=== PATIENT | female | born 1990 | race Caucasian/White ===

== ENCOUNTER → 2017-02-21 | Outpatient (CLI) | payer MEDICAID ==
[~2017-02-21] MED LIST: ABILIFY20 MG PO; AMOXICILLIN 25250 MG PO; BENADRYL; BIRTH CONTROL PILLS; CEPHALEXIN500 M1 PO; CLARITIN 1010 MG/TAB PO; EES400 MG PO; FAMVIR 500500 MG/TAB PO; GEODON80 MG PO; LEXAPRO 10MG10 MG PO; LEXAPRO20 MG PO; MACROBID 1100 MG/CAP PO; MICROGESTIN 1/21 TAB PO; MIRENA52 MG IY; NASONEX SPRAY; NORCO 325 MG-51 TAB PO; NORCO 325 MG-7.1 TAB PO; PAXIL20 MG PO; PERCOCET 325 MG1 TA2 PO; PHENERGAN 25 TA25 MG PO; PREDNISONE20 MG PO; PRENATAL1 TA1 PO; PRENATAL1 TA5 PO; PREVACID30 MG PO; PROMETHAZINE12.5 M5 PO; PROVENTIL0.09 MG/A1 IH; TESSALON PERLE200 MG PO; TOPAMAX 100MG100 MG PO; TOPIRAMATE; ZITHROMAX Z PA250 MG PO; ZOFRAN 4MG T4 MG/TAB PO; ZOFRAN ODT4 MG PO; ZOLOFT 100MG100 MG PO; ZYRTEC 10MG10 MG PO
== END ==
LOC: COL.RAD 15:51
DX: R10.11 Right upper quadrant pain (principal); R10.12 Left upper quadrant pain; Z87.442 Personal history of urinary calculi

== ENCOUNTER 2017-10-19 19:52 | Emergency (ER) | payer MEDICAID ==
[~2017-10-19] VITALS: Ht 157.5 cm; Wt 84.1 kg
[2017-10-19 19:53] VITALS: TEMP 98.5
[2017-10-19 20:11] VITALS: BP 119/68
[2017-10-19 20:33] LABS: BASO # 0.1 (0.0-0.2); BASO % 0.6 % (0.0-2.0); EOS # 0.1 (0.0-0.7); EOS % 0.9 % (0-4.0); GRAN # 7.5 (1.4-6.5); GRAN % 69.9 % (42.2-75.2); HEMATOCRIT 39.5 % (37.0-47.0); HEMOGLOBIN 13.2 g/dl (12.5-16.0); LYMPH # 2.5 (1.2-3.4); LYMPH % 23.3 % (20.0-51.0); MEAN CELL VOLUME 81 fl (80.0-100.0); MEAN CORPUSCULAR HEMOGLOBIN 27 pg (27.0-31.0); MEAN CORPUSCULAR HGB CONC 33 g/dl (33.0-37.0); MEAN PLATELET VOLUME 9.5 fl (7.4-10.4); MONO # 0.5 (0.1-0.6); PLATELET COUNT 284 K/mm3 (130-400); RED BLOOD COUNT 4.85 M/mm3 (4.10-5.30); REDCELL DISTRIBUTION WIDTH-CV 13.1 % (11.5-14.5)
[2017-10-19 20:41] LABS: BILIRUBIN,TOTAL 0.6 mg/dL (0.0-1.0); CALCIUM 9.2 mg/dL (8.4-10.2); CREATININE, serum 0.81 mg/dL (0.52-1.25); POTASSIUM 3.6 mmol/L (3.4-5.0); TOTAL PROTEIN 7.6 gm/dL (6.4-8.2)
[2017-10-19 22:06] VITALS: PULSE 80
== END 2017-10-19 22:06 | disposition home or self-care (01) ==
LOC: COL.ER 19:52
PROVIDERS: Emergency Medicine
DX: K52.9 Noninfective gastroenteritis and colitis, unspecified (principal); Z90.49 Acquired absence of other specified parts of digestive tract
CPT/HCPCS: J2405; J3010; J7120

== ENCOUNTER 2017-12-11 19:36 | Emergency (ER) | payer MEDICAID ==
[~2017-12-11] VITALS: Ht 157.5 cm; Wt 81.8 kg
[2017-12-11 19:39] VITALS: TEMP 99.2
[2017-12-11 20:27] LABS: BASO # 0.1 (0.0-0.2); BASO % 0.5 % (0.0-2.0); EOS # 0.1 (0.0-0.7); EOS % 0.6 % (0-4.0); GRAN # 7.5 (1.4-6.5); GRAN % 70.5 % (42.2-75.2); HEMOGLOBIN 11.9 g/dl (12.5-16.0); LYMPH # 2.4 (1.2-3.4); LYMPH % 22.5 % (20.0-51.0); MEAN CELL VOLUME 82 fl (80.0-100.0); MEAN CORPUSCULAR HEMOGLOBIN 27 pg (27.0-31.0); MEAN CORPUSCULAR HGB CONC 33 g/dl (33.0-37.0); MEAN PLATELET VOLUME 9.6 fl (7.4-10.4); MONO # 0.6 (0.1-0.6); MONO % 5.6 % (1.7-9.3); PLATELET COUNT 252 K/mm3 (130-400); RED BLOOD COUNT 4.36 M/mm3 (4.10-5.30); REDCELL DISTRIBUTION WIDTH-CV 13.2 % (11.5-14.5)
[2017-12-11 20:28] LABS: HEMATOCRIT 35.6 % (37.0-47.0)
[2017-12-11 20:38] LABS: ALBUMIN 4.1 gm/dL (3.5-5.0); BILIRUBIN,TOTAL 0.5 mg/dL (0.0-1.0); CALCIUM 9.1 mg/dL (8.4-10.2); CREATININE, serum 0.63 mg/dL (0.52-1.25); POTASSIUM 3.5 mmol/L (3.4-5.0); TOTAL PROTEIN 7.3 gm/dL (6.4-8.2)
[2017-12-11 21:14] LABS: COLLECTION METHOD CLEAN CATCH
[2017-12-11 21:37] LABS: MUCOUS Present /lpf; PH 5 (5-8); URINE APPEARANCE Hazy; URINE BACTERIA Rare /hpf; URINE BILIRUBIN Negative (NEGATIVE); URINE BLOOD Negative (NEGATIVE); URINE COLOR Yellow; URINE GLUCOSE Negative (NEGATIVE); URINE KETONE Negative (NEGATIVE); URINE LEUKOCYTE ESTERASE 2+ (NEGATIVE); URINE NITRATE Negative (NEGATIVE); URINE PROTEIN(semi-quant) 1+ (NEGATIVE); URINE UROBILINOGEN Negative (NEGATIVE)
[2017-12-11] MEDS ORDERED: CEFTIN 250250 MG/TAB PO (22:10)
[2017-12-11 22:33] VITALS: BP 105/63; PULSE 77
== END 2017-12-11 22:33 | disposition home or self-care (01) ==
LOC: COL.ER 19:36
PROVIDERS: Nurse Practitioner
DX: O23.41 Unspecified infection of urinary tract in pregnancy, first trimester (principal); O99.511 Diseases of the respiratory system complicating pregnancy, first trimester; J45.909 Unspecified asthma, uncomplicated; O99.341 Other mental disorders complicating pregnancy, first trimester; F32.9 Major depressive disorder, single episode, unspecified; Z87.440 Personal history of urinary (tract) infections; Z87.442 Personal history of urinary calculi; Z3A.01 Less than 8 weeks gestation of pregnancy
CPT/HCPCS: J0696; J2270; J7030

== ENCOUNTER 2018-08-03 21:13 | Inpatient (IN) | payer BC, MEDICAID ==
[~2018-08-03] VITALS: Ht 154.9 cm; Wt 86.8 kg
[2018-08-03] VITALS (9 sets, daily range): BP systolic 100–130; BP diastolic 50–81; PULSE 64–180; TEMP 98
[~2018-08-03 21:13] MED LIST changes: +CEFTIN 250250 MG/TAB PO
--- NOTE | 2018-08-03 21:30 | NUR ---
2114- Patient ambulatory to LDR-5 with , Magdy. Patient into restroom to change into gown. 2129- EFM and TOCO on and tracing. Patient presents to L&D with complaints of contractions since OB appointment today at [facility]. Patient states contractions have been increasing in strength since 1800 and are 3-5 minutes apart with resting periods of 15-20 minutes. Patient states she has intense lower back pain during contractions. Patient denies LOF or bleeding, but has had minimal spotting since yesterday and states she is starting to lose her mucus plug. SVE /-1 by this RN. Assessment completed. 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
[2018-08-03] MEDS ORDERED: NATURAL IRON65 MG (21:31)
[2018-08-03] MEDS ORDERED: ZANTAC 150MG T150 MG PO (21:31)
[2018-08-03] MEDS ORDERED: PRENATAL MVI (21:31)
[2018-08-03 23:00] LABS: BASO % 0.3 % (0.0-2.0); EOS % 0.3 % (0-4.0); GRAN # 8.1 (1.4-6.5); HEMOGLOBIN 11.8 g/dl (12.5-16.0); LYMPH # 2.7 (1.2-3.4); LYMPH % 23.1 % (20.0-51.0); MEAN CELL VOLUME 84 fl (80.0-100.0); MEAN CORPUSCULAR HEMOGLOBIN 29 pg (27.0-31.0); MEAN CORPUSCULAR HGB CONC 35 g/dl (33.0-37.0); MEAN PLATELET VOLUME 10.2 fl (7.4-10.4); MONO # 0.6 (0.1-0.6); MONO % 4.9 % (1.7-9.3); PLATELET COUNT 187 K/mm3 (130-400); RED BLOOD COUNT 4.04 M/mm3 (4.10-5.30); REDCELL DISTRIBUTION WIDTH-CV 13.7 % (11.5-14.5)
[2018-08-03 23:01] LABS: HEMATOCRIT 34.1 % (37.0-47.0)
[2018-08-04] VITALS (15 sets, daily range): BP systolic 97–135; BP diastolic 42–62; PULSE 53–92; TEMP 97.7–99
--- NOTE | 2018-08-04 | NUR ---
2229- updated. SVE /1. Patient upset and crying through contractions. Admit orders received. 224- IV started by CIARA Basilio. MERVAT Suarez notified for epidural. 2350- PCN G #1. See eMAR. 2300- Patient repositioned to sitting upright for epidural placement. Patient startes "I think my water just broke!". No free fluid noted by RN at this time. EFM and TOCO on and tracing intermittently due to maternal position. MERVAT Suarez at bedside for epidural placement. SROM. 2315- Test Dose. See Anesthesia Notification. 2320- at bedside. SVE -/-1 by . Floor bag ruptured by . Moderate amount of meconium-stained fluid noted. 2330- Mack catheter inserted. 0025- at bedside. SVE 8-/0 by .
--- NOTE | 2018-08-04 01:30 | NUR ---
2320- Addendum: Moderate amount of CLEAR fluid noted. 0055- at bedside. SVE Complete/+1. Patient begins to push intermittently with MD. 0100- Mack catheter removed. Patient continues to push intermittently with MD. Room set up for delivery at this time. 0105- of viable baby boy. Cord clamped and cut. Cord blood obtained. [place] care taken over by NellNurseedward RN. 0107- Spontaneous delivery of placenta. Fundus massaged to firm by MD. Left labial laceration repaired by MD. Minimal bleeding observed. Perineal care provided. Pitocin infusing at 333 ml/hr. 0115- Recovery started.
--- NOTE | 2018-08-04 04:00 | NUR ---
0400- PP Recovery completed. VSS. Patient sitting up on side of bed for epidural catheter removal. Patient tolerated well. Patient ambulatory to restroom with standby assist only. Bleeding WNL. Patient independent in cares while in restroom. 0415- Patient ambulatory to PP room 216. Patient and spouse oriented to room. Patient encouraged to rest at this time.
--- NOTE | 2018-08-04 08:00 | NUR ---
Rests in bed, alert. Denies any pain or discomfort at this time. Holds baby, feeds bottle.
--- NOTE | 2018-08-04 11:12 | NUR ---
Initial visit; Parents thanked Supervisor Coremaker for offering congratulaions and God's blessings for the of their son. Supervisor Coremaker thanked them for choosing [facility].
--- NOTE | 2018-08-04 17:15 | NUR ---
Rests in bed, alert. Family at bedside. 2629 Ibuprofen 800 mg given as ordered.
[2018-08-05 10:15] VITALS: BP 120/72; PULSE 68; TEMP 98.1
[2018-08-05 18:29] VITALS: BP 103/46; PULSE 61; TEMP 97.9
[2018-08-06 08:30] VITALS: BP 103/59; PULSE 72; TEMP 97.9
[2018-08-06] MEDS ORDERED: IBU800 M1 PO (09:12)
--- NOTE | 2018-08-06 11:15 | NUR ---
Patient discharge instructions reviewed. Patient verbalizes understanding. Escorted off unit at 1120
== END 2018-08-06 11:20 | disposition home or self-care (01) | DRG 807 ==
LOC: LDRO 21:13 → LDR 23:00 → OB 23:00
PROVIDERS: Obstetrics & Gynecology; ADMIT Obstetrics & Gynecology
PROC: 10E0XZZ Delivery of Products of Conception, External Approach (ICD-10-PCS; principal; 2018-08-04)
PROC: 0UQMXZZ Repair Vulva, External Approach (ICD-10-PCS; 2018-08-04)
DX: O70.0 First degree perineal laceration during delivery (principal); Z37.0 Single live birth; Z3A.37 37 weeks gestation of pregnancy; O99.02 Anemia complicating childbirth; D64.9 Anemia, unspecified; O99.344 Other mental disorders complicating childbirth; F41.8 Other specified anxiety disorders; O99.824 Streptococcus B carrier state complicating childbirth; O26.893 Other specified pregnancy related conditions, third trimester; Z67.41 Type O blood, Rh negative; J45.909 Unspecified asthma, uncomplicated; O99.214 Obesity complicating childbirth; O76 Abnormality in fetal heart rate and rhythm complicating labor and delivery
CPT/HCPCS: J2540; J2590; J2791; J7120

== ENCOUNTER → 2020-03-08 | Outpatient (CLI) | payer BC ==
[~2020-03-08] MED LIST changes: +IBU800 M1 PO; +NATURAL IRON65 MG; +PRENATAL MVI; +ZANTAC 150MG T150 MG PO
== END ==
LOC: MHCPAIN 12:15
DX: M47.812 Spondylosis without myelopathy or radiculopathy, cervical region (principal); M54.2 Cervicalgia; G89.29 Other chronic pain
CPT/HCPCS: G0463